=== PATIENT | male | born 1995 | race Caucasian/White ===

== ENCOUNTER → 2018-04-21 11:03 | Outpatient (CLI) | payer OTHER, MEDICAID, SELFPAY ==
[2018-04-21 11:48] LABS: Absolute Lymphocyte Count 2.39 X10^3/ul (0.83-4.51); Absolute Neutrophil Count 4.4 X10^3/uL (2.0-7.7); Basophil# 0.03 X10^3/uL; Basophil% 0.4 % (0-1); Eosinophil# 0.17 X10^3/uL; Eosinophils% 2.2 % (0-5); Hematocrit 43.9 % (40-54); Hemoglobin 14.9 g/dl (13.0-16.5); Lymphocyte # 2.39 X10^3/ul (4.0); Lymphocyte % 31.4 % (19-41); Mean Corp Hgb Conc 33.9 g/gl (32-36); Mean Corpuscular Hgb 30.7 pg (27.0-32.0); Mean Corpuscular Volume 90.5 fL (80-94); Monocyte# 0.66 X10^3/uL; Monocyte% 8.7 % (0-10); Neutrophil # 4.36 X10^3/uL (2.7-7.7); Neutrophil % 57.2 % (47-70); Platelet Count 224 K/mm3 (150-450); RBC Distribution Width CV 13.3 % (11.6-14.6); RBC Distribution Width SD 44.1 fl (35.1-43.9); Red Blood Count 4.85 M/mm3 (4.6-6.2); White Blood Count 7.6 K/mm3 (4.4-11.0)
[2018-04-21 11:49] LABS: POSITIVE COUNT NO; POSITIVE DIFFERENTIAL NO; POSITIVE MORPHOLOGY NO
[2018-04-21 12:20] LABS: ALB/GLOB Ratio 1.1 RATIO (0.9-2.4); AST(SGOT) 18 U/L (15-37); Alanine Aminotransfer ALT/SGPT 32 U/L (16-61); Albumin, Serum 3.9 g/dL (3.2-5.0); Alkaline Phosphatase 80 U/L (45-117); Anion Gap 6 (5-15); BUN 13 mg/dL (7-18); BUN/Creat Ratio 12.1 RATIO (10-20); Calcium,Total 8.8 mg/dL (8.5-10.1); Chloride 110 mmol/L (98-107); Creatinine, Serum 1.07 mg/dL (0.70-1.30); EST Glomerular Filtration Rate 89 mL/min (>60); Est Glom Filt Rate - Afr Amer 108 mL/min (>60); Globulin 3.5 g/dL (2.2-4.2); Glucose 89 mg/dL (74-106); Potassium 3.9 mmol/L (3.5-5.1); Protein, Total 7.4 g/dL (6.4-8.2); Sodium Level 142 mmol/L (136-145); Thyroid Stim Hormone (TSH) 3.58 uIU/mL (0.358-3.74)
[2018-04-21 12:57] LABS: HIV - WCH Non-Reactive (Nonreactive)
[2018-04-21 14:26] LABS: Chlamydia Trachomatis by PCR Negative (Negative); Neisserai gonorrhoeae by PCR Negative (Negative); Probe Check PASS; Sample Adequacy Control PASS; Specimen Processing Control PASS
[2018-04-22 06:05] LABS: HEPATITIS B SURFACE AG Negative (Negative); Hepatitis A AB, Total Negative (Negative); Hepatitis A IgM Antibody Negative (Negative); Hepatitis B Core AB IgM Negative (Negative); Hepatitis B Core Ab Total Negative (Negative); Hepatitis C Ab <0.1 s/co ratio (0.0-0.9)
[2018-04-22 07:53] LABS: Hep B Surface Antibodies Non Reactive (.); Hep C Antibodies <0.1 s/co ratio (0.0-0.9)
[2018-04-25 03:16] LABS: Rapid Plasmin Reagin (RPR) NONREACTIVE (NONREACTIVE)
== END ==
PROVIDERS: PCP Internal Medicine; Visit Provider Nurse Practitioner Family
DX: K50.90 Crohn's disease, unspecified, without complications (principal); F19.10 Other psychoactive substance abuse, uncomplicated; F32.9 Major depressive disorder, single episode, unspecified; Z72.51 High risk heterosexual behavior
CPT/HCPCS: 36415; 80053; 84443; 85025; 86592; 86703; 86704; 86705; 86706; 86708; 86709; 86803; 87340; 87491; 87591

== ENCOUNTER → 2021-05-08 10:29 | Outpatient (CLI) | payer BC, SELFPAY ==
[2018-05-15 14:00] VITALS: BMI 24.7
[2021-05-08 12:33] LABS: Absolute Neutrophil Count 3.9 X10^3/uL (2.0-7.7); Basophil# 0.03 X10^3/uL; Basophil% 0.5 % (0-1); Eosinophil# 0.12 X10^3/uL; Eosinophils% 1.9 % (0-5); Hematocrit 46.4 % (40-54); Hemoglobin 15.6 g/dL (13.0-16.5); Lymphocyte % 26.8 % (19-41); Mean Corp Hgb Conc 33.6 g/dL (32-36); Mean Corpuscular Hgb 30.4 pg (27.0-32.0); Mean Corpuscular Volume 90.4 fL (80-94); Mean Platelet Vol. 10.5 fl (6.2-12.0); Monocyte# 0.57 X10^3/uL; NRBC Flagged by Analyzer 0 % (0-5); Neutrophil % 61.5 % (47-70); Platelet Count 263 K/mm3 (150-450); RBC Distribution Width SD 43.5 fl (35.1-43.9); Red Blood Count 5.13 M/mm3 (4.6-6.2); White Blood Count 6.3 K/mm3 (4.4-11.0)
[2021-05-08 12:51] LABS: T4 Free Direct 1.08 ng/dL (0.76-1.46); Thyroid Stim Hormone (TSH) 1.89 uIU/mL (0.358-3.74)
[2021-05-08 13:37] LABS: HIV - WCH Non-Reactive (Nonreactive); Hepatitis B Surface Antibody Non-Reactive; Hepatitis B Surface Antigen Non-Reactive (Nonreactive); Hepatitis C Antibody Non-Reactive (Nonreactive)
== END ==
PROVIDERS: PCP Family Medicine; Referring Provider Family Medicine; Visit Provider Family Medicine
DX: R68.89 Other general symptoms and signs (principal); F17.210 Nicotine dependence, cigarettes, uncomplicated; F19.11 Other psychoactive substance abuse, in remission
CPT/HCPCS: 36415; 84439; 84443; 85025; 86703; 86706; 86803; 87340

== ENCOUNTER 2023-08-30 19:58 | Emergency (ER) | payer BC, SELFPAY ==
[2023-08-30 19:59] VITALS: BP 125/93; PULSE 79; RESP 18; TEMP 37.3; O2SAT 98; BMI 25.0
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
[2023-08-30 20:58] LABS: Absolute Lymphocyte Count 1.85 X10^3/uL (0.83-4.51); Absolute Neutrophil Count 10.1 X10^3/uL (2.0-7.7); Basophil# 0.04 X10^3/uL; Basophil% 0.3 % (0-1); Eosinophil# 0.22 X10^3/uL; Eosinophils% 1.7 % (0-5); Hematocrit 44.5 % (40-54); Hemoglobin 15.2 g/dL (13.0-16.5); Lymphocyte # 1.85 X10^3/ul (0.83-4.51); Lymphocyte % 14.1 % (19-41); Mean Corp Hgb Conc 34.2 g/dL (32-36); Mean Corpuscular Hgb 31.3 pg (27.0-32.0); Mean Corpuscular Volume 91.8 fL (80-94); Mean Platelet Vol. 9.9 fl (6.2-12.0); Monocyte# 0.85 X10^3/uL; Monocyte% 6.5 % (0-10); NRBC Flagged by Analyzer 0 % (0-5); Neutrophil # 10.11 X10^3/uL (2.7-7.7); Neutrophil % 76.9 % (47-70); Platelet Count 252 K/mm3 (150-450); RBC Distribution Width CV 12.8 % (11.6-14.6); RBC Distribution Width SD 42.9 fl (35.1-43.9); Red Blood Count 4.85 M/mm3 (4.6-6.2); White Blood Count 13.1 K/mm3 (4.4-11.0)
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
[2023-08-30 21:15] LABS: ALB/GLOB Ratio 1.2 RATIO (0.9-2.4); AST(SGOT) 43 U/L (15-37); Alanine Aminotransfer ALT/SGPT 45 U/L (16-61); Albumin, Serum 3.6 g/dL (3.2-5.0); Alkaline Phosphatase 61 U/L (45-117); Anion Gap 3 (5-15); BUN 14 mg/dL (7-18); BUN/Creat Ratio 10.9 RATIO (10-20); Calcium,Total 8.7 mg/dL (8.5-10.1); Chloride 110 mmol/L (98-107); Creatinine, Serum 1.28 mg/dL (0.70-1.30); EST Glomerular Filtration Rate 70 mL/min (>60); Est Glom Filt Rate - Afr Amer 85 mL/min (>60); Estimated Creatinine Clearance 81.64 ml/min; Globulin 3.1 g/dL (2.2-4.2); Glucose 133 mg/dL (74-106); Potassium 3.8 mmol/L (3.5-5.1); Protein, Total 6.7 g/dL (6.4-8.2); Sodium Level 141 mmol/L (136-145)
[2023-08-30] MEDS: Acetaminophen 500 MG Tablet 1000 MG PO (21:32)
[2023-08-30] MEDS: Diphth,Pertuss(Acell),Tet Vac 0.5 ML Vial IM (21:32)
[2023-08-30] MEDS: Lidocaine 1% (20 ml mdv) 20 ML Vial INFILT (21:33)
[2023-08-30 21:59] VITALS: RESP 18
[2023-08-30] MEDS: Ketorolac 30 MG/ML Syringe IV (22:31)
[2023-08-30 23:59] VITALS: RESP 18
== END 2023-08-31 00:05 | disposition home or self-care (01) ==
PROVIDERS: Emergency Provider Emergency Medicine; Visit Provider Emergency Medicine
DX: S16.1XXA Strain of muscle, fascia and tendon at neck level, initial encounter (principal); S61.215A Laceration without foreign body of left ring finger without damage to nail, initial encounter; S61.411A Laceration without foreign body of right hand, initial encounter; S00.83XA Contusion of other part of head, initial encounter; S20.20XA Contusion of thorax, unspecified, initial encounter; M79.632 Pain in left forearm; M25.511 Pain in right shoulder; V43.62XA Car passenger injured in collision with other type car in traffic accident, initial encounter; F17.200 Nicotine dependence, unspecified, uncomplicated; Z23 Encounter for immunization
CPT/HCPCS: 12002; 70450; 71260; 72125; 73090; 73130; 74177; 80053; 85025; 90715; 96374; 99285; Q9967; A4216

== ENCOUNTER → 2025-01-13 | Outpatient (CLI) | payer BC, SELFPAY ==
--- NOTE | 2025-01-13 12:41 | RAD_ITS ---
PROCEDURE: CERV SPINE 2 OR 3 VIEWS 01/13/2025 REASON FOR EXAM: PAIN, RADICULAR SYMPTOMS TECHNIQUE: 4 views of the cervical spine. COMPARISON: None available FINDINGS: Vertebrae: Vertebral body heights are well preserved. disc spaces: There is loss of intervertebral disc height throughout the cervical spine. Alignment: Straightening of the lordosis of the cervical spine. soft tissues: No overlying soft tissue swelling. Other: RAD/Cerv Spine 2 or 3 Views IMPRESSION: No acute fracture or traumatic malalignment. Reading Location: [id number]
--- NOTE | 2025-01-13 12:41 | RAD_ITS ---
PROCEDURE: SHOULDER MIN 2 VIEWS 01/13/2025 REASON FOR EXAM: PAIN TECHNIQUE: Four views of the right shoulder COMPARISON: None available FINDINGS: Bones: No acute fracture or dislocation. Joints: Joint spaces are preserved. Soft tissues: No overlying soft tissue swelling. Other: None RAD/Shoulder min 2 Views IMPRESSION: No acute displaced fracture or dislocation. Reading Location: [id number]
== END | disposition home or self-care (01) ==
LOC: MTRAD 12:41
PROVIDERS: PCP Family Medicine; Referring Provider Family Medicine; Visit Provider Family Medicine
DX: M54.12 Radiculopathy, cervical region (principal)
CPT/HCPCS: 72040; 73030